=== PATIENT | female | born 1975 | race Hispanic/Latino ===

== ENCOUNTER 2021-05-09 14:58 | Emergency (ER) | payer OTHER ==
[~2021-05-09] VITALS: Ht 160 cm; Wt 165.6 kg
[2021-05-09 14:59] VITALS: BP 146/75
[2021-05-09 16:47] LABS: BASOPHILS % (AUTO) 0.3 % (0.0-5.0); EOSINOPHILS % (AUTO) 0.7 % (0.0-8.0); HEMATOCRIT 44.5 % (36-48); LYMPHOCYTES % (AUTO) 11.5 % (21.0-51.0); MEAN CORPUSCULAR HEMOGLOBIN 29.1 pg (27.0-33.0); MEAN CORPUSCULAR VOLUME 88.1 fL (79-99); MONOCYTES % (AUTO) 3.9 % (3.0-13.0); NEUTROPHILS % (AUTO) 82.8 % (40.0-77.0); PLATELET COUNT (AUTO) 297 K/uL (130-400); RED BLOOD CELL COUNT(AUTO) 5.05 MIL/uL (4.00-5.50); RED CELL DISTRIBUTION WIDTH 13.2 % (11.0-15.5); WHITE BLOOD COUNT (AUTO) 17.6 K/uL (4.8-10.8)
[2021-05-09 17:07] LABS: CREATININE 0.6 mg/dL (0.5-1.5); POTASSIUM 4.4 mmol/L (3.5-5.1)
[2021-05-09 17:12] LABS: ALBUMIN 3.6 g/dL (3.5-5.0); BILIRUBIN,TOTAL 0.7 mg/dL (0.2-1.0); TOTAL PROTEIN, SERUM 8.8 g/dL (6.0-8.3)
[2021-05-09] MEDS ORDERED: PROMETHAZINE HCL 25 MG/ML 1ML AMPULE IM ONE (20:15)
[2021-05-09] MEDS ORDERED: 0.9%NACL 1000ML 1,000 ML IV ONE (20:15)
[2021-05-09 20:43] LABS: APPEARANCE,URINE Clear (CLEAR); BILIRUBIN,URINE Negative (NEGATIVE); COLOR,URINE Dark Yellow (YELLOW); GLUCOSE, URINE (UA) Negative (NEGATIVE); KETONES,URINE Trace mg/dL (NEGATIVE); LEUKOCYTE ESTERASE ,URINE Trace (NEGATIVE); NITRATE,URINE Negative (NEGATIVE); OCCULT BLOOD,URINE Negative (NEGATIVE); PROTEIN,URINE POS 1+ mg/dL (NEGATIVE)
[2021-05-09 20:50] LABS: BACTERIA,URINE Few /HPF (None Seen); RBC,URINE 0-1 /HPF (0-1)
[2021-05-09 20:51] LABS: MUCUS,URINE Few LPF (None Seen); SQUAMOUS EPITHELIAL CELL,UR Few /HPF (0-2)
[2021-05-09] MEDS ORDERED: CEFTRIAXONE 1G VIAL IV SCH (21:45)
[2021-05-09] MEDS ORDERED: ACETAMINOPHEN 500 MG TABLET PO ONE (22:00)
[2021-05-09] MEDS ORDERED: CEPH500B PO (22:12)
[2021-05-09] MEDS ORDERED: ONDA4TAB10 PO (22:12)
[2021-05-09] MEDS ORDERED: ACET-2247 PO (22:12)
[2021-05-09 22:25] VITALS: BP 142/80
== END 2021-05-09 22:36 | disposition home or self-care (01) ==
LOC: EDH 14:58
DX: K52.9 Noninfective gastroenteritis and colitis, unspecified (principal); N39.0 Urinary tract infection, site not specified; Z20.822 Contact with and (suspected) exposure to COVID-19; E11.9 Type 2 diabetes mellitus without complications; E66.01 Morbid (severe) obesity due to excess calories; Z79.84 Long term (current) use of oral hypoglycemic drugs; Z79.899 Other long term (current) drug therapy; Z68.44 Body mass index [BMI] 60.0-69.9, adult
CPT/HCPCS: 36415; 71045; 80053; 81001; 82550; 83690 ×2; 84484 ×2; 85025; 87635; 87804 ×2; 93005 ×2; 96361; 96372; 96374; 99285; C9803; J0696; J2550; J7030